=== PATIENT | female | born 1985 | race Caucasian/White ===

== ENCOUNTER → 2016-08-20 | Outpatient (CLI) | payer OTHER | LOC: FIMAGING 08:43 | PROVIDERS: ATTEND Advanced Practice Midwife | DX: O09.92 Supervision of high risk pregnancy, unspecified, second trimester (principal); O21.9 Vomiting of pregnancy, unspecified; O26.12 Low weight gain in pregnancy, second trimester; Z14.1 Cystic fibrosis carrier; Z3A.19 19 weeks gestation of pregnancy ==

== ENCOUNTER → 2016-09-16 | Outpatient (CLI) | payer OTHER | LOC: FIMAGING 14:22 | PROVIDERS: ATTEND Advanced Practice Midwife | DX: O09.812 Supervision of pregnancy resulting from assisted reproductive technology, second trimester (principal); Z3A.23 23 weeks gestation of pregnancy; Z14.1 Cystic fibrosis carrier ==

== ENCOUNTER → 2016-09-19 | Outpatient (CLI) | payer OTHER ==
[2016-09-21 13:26] LABS: GA USED Scan estimate; GENERAL TEST INFO See Comments; INTERPRETATION See Comments
[2016-09-23 08:14] LABS: INTERPRETATION See Comments; PAD FISH RESULT SUMMARY Normal
[2016-09-24 12:35] LABS: MISCELLANEOUS TEST See Comments
== END ==
LOC: FIMAGING 09:47
PROVIDERS: ATTEND Advanced Practice Midwife
PROC: 10903ZU Drainage of Amniotic Fluid, Diagnostic from Products of Conception, Percutaneous Approach (ICD-10-PCS; principal; 2016-09-19)
DX: O36.5990 Maternal care for other known or suspected poor fetal growth, unspecified trimester, not applicable or unspecified (principal)
CPT/HCPCS: 82106-90; 88291-90

== ENCOUNTER → 2016-10-03 | Outpatient (CLI) | payer OTHER | LOC: FIMAGING 09:49 | PROVIDERS: ATTEND Advanced Practice Midwife | DX: O36.5921 Maternal care for other known or suspected poor fetal growth, second trimester, fetus 1 (principal); Z3A.23 23 weeks gestation of pregnancy ==

== ENCOUNTER 2016-10-10 16:42 | Observation (INO) | payer OTHER ==
--- NOTE | 2016-10-10 18:22 | GHP ---
[f rep st] PREOP HISTORY AND PHYSICAL DATE OF ADMISSION: 10/10/2016 CHIEF COMPLAINT: Decreased movement and vaginal bleeding. HISTORY OF PRESENT ILLNESS: The patient is a 31-year-old , female who is dated by LMP and intr auterine insemination. She is at 26 weeks and 4 days. She has been receiving her care at the [facility]. Her has recently been complicated IUGR of 7th percentile that was diagno sed on September 16, 2016. The recommended plan is Dopplers every 2 weeks and growth every 4 weeks. PAST MEDICAL HISTORY: Noncontributory. METAL FITTER HISTORY: Significant for HPV genital warts. OB HISTORY: This is her first . FAMILY HISTORY: Noncontributory. REVIEW OF SYSTEMS: Positive for decreased movement and vaginal bleeding. No loss of fluid. No contractions PHYSICAL EXAMINATION: Her vital signs are stable. In general, she is in no apparent distress. Her abdomen is gravid and nontender. heart tones are in the 130s with moderate variability and p ositive accelerations; there are no decelerations. Her YAIMA is 14 cm. Fetus is vertex. She had a s terile speculum exam, which revealed no active bleeding from the cervix. On digital exam, her cervi x is closed, long, and high. She has no contractions on tocometry. LABORATORY DATA: Her blood type is O positive. DISCUSSION AND DECISION-MAKING: This is a 31-year-old, , female who is at 26-4/7 weeks' gestat ion with decreased movement and IUGR. I have reassured the patient that the well being is very reassuring by NST and amniotic fluid index. Of note, I also saw the fetus moving on monitor ing with ultrasound and breathing. PAST MEDICAL HISTORY: Significant for anxiety, depression, asthma, hidradenitis suppurativa, and va ginal bleeding. The patient did note this was after orgasm. I do not see any evidence of active bl eeding or labor. I discussed the patient may have some brown discharge over the next few da ys, but please follow up with heavy vaginal bleeding, loss of fluid, or continued decreased mo vement. The patient has a followup ultrasound appointment on Friday10/14/2016. /[id number]
== END 2016-10-10 18:00 | disposition home or self-care (01) ==
LOC: FLD 16:42
PROVIDERS: ADMIT Obstetrics & Gynecology; ATTEND Obstetrics & Gynecology
DX: O36.8120 Decreased fetal movements, second trimester, not applicable or unspecified (principal); O36.5990 Maternal care for other known or suspected poor fetal growth, unspecified trimester, not applicable or unspecified; Z3A.26 26 weeks gestation of pregnancy
CPT/HCPCS: 59025; G0378

== ENCOUNTER → 2016-10-14 | Outpatient (CLI) | payer OTHER | LOC: FIMAGING 09:35 | PROVIDERS: ATTEND Advanced Practice Midwife | DX: Z34.02 Encounter for supervision of normal first pregnancy, second trimester (principal); Z3A.27 27 weeks gestation of pregnancy ==

== ENCOUNTER → 2016-11-14 | Outpatient (CLI) | payer OTHER | LOC: FIMAGING 11:22 | PROVIDERS: ATTEND Advanced Practice Midwife | DX: Z34.03 Encounter for supervision of normal first pregnancy, third trimester (principal); Z3A.31 31 weeks gestation of pregnancy ==